=== PATIENT | female | born 1950 | race Caucasian/White ===

== ENCOUNTER 2021-04-24 06:40 | Emergency (ER) | payer MEDICARE, BC ==
--- NOTE | 2021-04-24 07:24 | EDM.PDOC ---
ED HPI GENERAL MEDICAL PROBLEM - General Chief Complaint: Respiratory Problem Stated Complaint: shortness of breath and cough Time Seen by Provider: 04/24/21 07:10 Source of Information: Reports: Patient History Limitations: Reports: No Limitations - History of Present Illness INITIAL COMMENTS - FREE TEXT/NARRATIVE: Pt states has lung cancer and hx clots. Cancer dx Apr 2020. States had chemo and radiation and will start chemo again on Sunday. SOB at home today, productive cough, came to ER. States had MRI and PET scan recently, but does not know result. States Full Code. Onset: Today, Gradual Onset Date: 04/24/21 Duration: Constant Location: Reports: Chest, Other (no chest pain) Improves with: Reports: None Worsens with: Reports: Movement Context: Reports: Other (lung cancer) Associated Symptoms: Reports: cough w sputum, Fever/Chills Treatments [employer]: Reports: Acetaminophen (tylenol at midnight) - Related Data Allergies Allergy/AdvReac Type Severity Reaction Status Date / Time No Known Allergies Allergy Verified 04/24/21 07:12 Past Medical History Oncologic (Cancer) History: Reports: Lung, Other (See Below) (adenocarcinoma) Social & Family History - Tobacco Use Tobacco Use Within Last Twelve Months: No Used Tobacco, but Quit: Yes Month/Year Tobacco Last Used: 35 years ago ED ROS GENERAL - Review of Systems Review Of Systems: See Below Constitutional: Reports: Fever HEENT: Reports: No Symptoms Respiratory: Reports: Shortness of Breath, Cough, Sputum Cardiovascular: Reports: No Symptoms Endocrine: Reports: No Symptoms GI/Abdominal: Reports: No Symptoms : Reports: No Symptoms Musculoskeletal: Reports: No Symptoms Skin: Reports: No Symptoms Neurological: Reports: No Symptoms Psychiatric: Reports: No Symptoms Hematologic/Lymphatic: Reports: No Symptoms Immunologic: Reports: No Symptoms ED EXAM, GENERAL - Physical Exam Exam: See Below Exam Limited By: No Limitations General Appearance: Alert, No Apparent Distress, Anxious Eye Exam: Bilateral Eye: EOMI Ears: Normal External Exam Nose: Normal Inspection, Normal Mucosa Throat/Mouth: Normal Inspection, Normal Oropharynx, Normal Voice, No Airway Compromise Neck: Supple, Non-Tender, Full Range of Motion, Other (goiter) Respiratory/Chest: Decreased Breath Sounds, Other (coarse throughout, diminished) Cardiovascular: Regular Rate, Rhythm, Tachycardia, Other (Occ PVCs on bedside monitor) GI/Abdominal: Soft, Non-Tender, No Distention Back Exam: Normal Inspection, Full Range of Motion Extremities: Normal Range of Motion, Non-Tender, No Pedal Edema, Normal Capillary Refill Neurological: Alert, Oriented, Normal Cognition Psychiatric: Normal Mood, Anxious Skin Exam: Warm, Dry, Intact, Normal Color, No Rash Lymphatic: No Adenopathy Course - Vital Signs Last Recorded V/S: Last Vital Signs Temp 100.6 F 04/24/21 08:00 Pulse 132 H 04/24/21 06:50 Resp 32 H 04/24/21 06:50 BP 147/88 H 04/24/21 06:50 Pulse Ox 87 L 04/24/21 06:50 - Orders/Labs/Meds Orders: Active Orders 24 hr Category Date Time Status RT Aerosol Therapy [RC] ASDIRECTED Care 04/24/21 08:19 Active CULTURE BLOOD [BC] Stat Lab 04/24/21 06:55 Received CULTURE BLOOD [BC] Stat Lab 04/24/21 07:20 Results Sodium Chloride 0.9% [Normal Saline] 1,000 ml Med 04/24/21 07:30 Active IV ASDIRECTED Blood Culture x2 Reflex Set [OM.PC] Stat Oth 04/24/21 07:16 Ordered Medication Orders Sodium Chloride (Normal Saline) 1,000 mls @ 250 mls/hr IV ASDIRECTED [facility] Labs: Laboratory Tests 04/24/21 04/24/21 04/24/21 Range/Units 06:55 06:55 06:55 WBC 11.6 H (4.0-10.0) x10^3/uL RBC 4.80 (4.00-5.50) x10^6/uL Hgb 14.5 (12.0-16.0) g/dL Hct 43.5 (33.0-47.0) % MCV 90.6 (78.0-93.0) fL MCH 30.2 (26.0-32.0) pg MCHC 33.3 (32.0-36.0) g/dL RDW Coeff of Mukul 12.4 (10.0-15.0) % Plt Count 225 (130-400) x10^3/uL Immature Gran % (Auto) 0.20 (0.00-0.43) % Neut % (Auto) 88.6 H (50.0-80.0) % Lymph % (Auto) 4.6 L (25.0-50.0) % [place] % (Auto) 6.2 (2.0-11.0) % Eos % (Auto) 0.3 (0.0-4.0) % Baso % (Auto) 0.1 L (0.2-1.2) % Neut # (Auto) 10.3 H (1.8-7.7) x10^3/uL Lymph # (Auto) 0.5 L (1.0-4.8) x10^3/uL [place] # (Auto) 0.7 (0.0-0.8) x10^3/uL Eos # (Auto) 0.0 (0.0-0.5) x10^3/uL Baso # (Auto) 0.0 (0.0-0.2) x10^3/uL Immature Gran # (Auto) 0.02 (0.00-0.07) x10^3/uL D-Dimer, Quantitative 0.79 H (<=0.58) mg/LFEU Sodium 138 (136-145) mmol/L Potassium 3.2 L (3.5-5.1) mmol/L Chloride 101 (98-107) mmol/L Carbon Dioxide 28 (21-32) mmol/L Anion Gap 12.2 (5-15) mmol/L BUN 11 (7-18) mg/dL Creatinine 1.0 (0.55-1.02) mg/dL Est Cr Clr Drug Dosing 44.56 mL/min Estimated GFR (MDRD) 55 Glucose 142 H (70-99) mg/dL Lactic Acid (0.4-2.0) mmol/L Calcium 9.7 (8.5-10.1) mg/dL Corrected Calcium 10.0 (8.5-10.1) mg/dL Total Bilirubin 1.1 H (0.2-1.0) mg/dL AST 17 (15-37) U/L ALT 21 (14-59) U/L Alkaline Phosphatase 82 (46-116) U/L Total Protein 7.1 (6.4-8.2) g/dL Albumin 3.6 (3.4-5.0) g/dL Globulin 3.5 Albumin/Globulin Ratio 1.03 Urine Color (YELLOW) Urine Appearance (CLEAR) Urine pH (5.0-8.0) Ur Specific [place] Urine Protein (NEGATIVE) mg/dL Urine Glucose (UA) (NEGATIVE) mg/dL Urine Ketones (NEGATIVE) mg/dL Urine Occult Blood (NEGATIVE) Urine Nitrite (NEGATIVE) Urine Bilirubin (NEGATIVE) Urine Urobilinogen (0.2) EU/dL Ur Leukocyte Esterase (NEGATIVE) Urine RBC (NOT SEEN) /HPF Urine WBC (NOT SEEN) /HPF Ur Squamous Epith Cells (NOT SEEN) /HPF Urine Bacteria (NOT SEEN) /HPF Urine Mucus (NOT SEEN) /LPF Influenza Type A RNA (NEGATIVE) RSV RNA (INAAT) (NEGATIVE) Influenza Type B RNA (NEGATIVE) SARS-CoV-2 RNA (FELECIA) (NEGATIVE) 04/24/21 04/24/21 04/24/21 Range/Units 06:55 07:00 08:19 WBC (4.0-10.0) x10^3/uL RBC (4.00-5.50) x10^6/uL Hgb (12.0-16.0) g/dL Hct (33.0-47.0) % MCV (78.0-93.0) fL MCH (26.0-32.0) pg MCHC (32.0-36.0) g/dL RDW Coeff of Mukul (10.0-15.0) % Plt Count (130-400) x10^3/uL Immature Gran % (Auto) (0.00-0.43) % Neut % (Auto) (50.0-80.0) % Lymph % (Auto) (25.0-50.0) % [place] % (Auto) (2.0-11.0) % Eos % (Auto) (0.0-4.0) % Baso % (Auto) (0.2-1.2) % Neut # (Auto) (1.8-7.7) x10^3/uL Lymph # (Auto) (1.0-4.8) x10^3/uL [place] # (Auto) (0.0-0.8) x10^3/uL Eos # (Auto) (0.0-0.5) x10^3/uL Baso # (Auto) (0.0-0.2) x10^3/uL Immature Gran # (Auto) (0.00-0.07) x10^3/uL D-Dimer, Quantitative (<=0.58) mg/LFEU Sodium (136-145) mmol/L Potassium (3.5-5.1) mmol/L Chloride (98-107) mmol/L Carbon Dioxide (21-32) mmol/L Anion Gap (5-15) mmol/L BUN (7-18) mg/dL Creatinine (0.55-1.02) mg/dL Est Cr Clr Drug Dosing mL/min Estimated GFR (MDRD) Glucose (70-99) mg/dL Lactic Acid 1.8 (0.4-2.0) mmol/L Calcium (8.5-10.1) mg/dL Corrected Calcium (8.5-10.1) mg/dL Total Bilirubin (0.2-1.0) mg/dL AST (15-37) U/L ALT (14-59) U/L Alkaline Phosphatase (46-116) U/L Total Protein (6.4-8.2) g/dL Albumin (3.4-5.0) g/dL Globulin Albumin/Globulin Ratio Urine Color Yellow (YELLOW) Urine Appearance Clear (CLEAR) Urine pH 5.5 (5.0-8.0) Ur Specific [place] >=1.030 Urine Protein 30 H (NEGATIVE) mg/dL Urine Glucose (UA) Negative (NEGATIVE) mg/dL Urine Ketones 80 H (NEGATIVE) mg/dL Urine Occult Blood Negative (NEGATIVE) Urine Nitrite Negative (NEGATIVE) Urine Bilirubin Small H (NEGATIVE) Urine Urobilinogen 0.2 (0.2) EU/dL Ur Leukocyte Esterase Trace H (NEGATIVE) Urine RBC 0-5 (NOT SEEN) /HPF Urine WBC 5-10 H (NOT SEEN) /HPF Ur Squamous Epith Cells Few H (NOT SEEN) /HPF Urine Bacteria Rare (NOT SEEN) /HPF Urine Mucus Moderate H (NOT SEEN) /LPF Influenza Type A RNA Negative (NEGATIVE) RSV RNA (INAAT) Negative (NEGATIVE) Influenza Type B RNA Negative (NEGATIVE) SARS-CoV-2 RNA (FELECIA) Negative (NEGATIVE) Meds: Medications Generic Name Dose Route Start Last Admin Trade Name Freq PRN Reason Stop Dose Admin Sodium Chloride 1,000 mls @ 250 mls/hr 04/24/21 07:30 Normal Saline IV ASDIRECTED KELSEY Discontinued Medications Generic Name Dose Route Start Last Admin Trade Name Nolan PRN Reason Stop Dose Admin Acetaminophen 1,000 mg 04/24/21 07:25 04/24/21 07:30 Acetaminophen 500 Mg Tab PO 04/24/21 07:26 1,000 mg ONETIME ONE Administration Albuterol/Ipratropium 3 ml 04/24/21 08:19 04/24/21 08:30 Albuterol/Ipratropium 3.0-0.5 Mg/3 Ml Neb Soln NEB 04/24/21 08:20 3 ml ONETIME ONE Administration Ceftriaxone Sodium 1 gm 04/24/21 08:00 Ceftriaxone 1 Gm Vial IVPUSH DAILY KELSEY Ceftriaxone Sodium 1 gm 04/24/21 07:56 04/24/21 08:19 Ceftriaxone 1 Gm Vial IVPUSH 04/24/21 07:57 Not Given STAT ONE Potassium Chloride 20 meq 04/24/21 08:19 04/24/21 08:30 Potassium Chloride 10 Meq Tab.Er PO 04/24/21 08:20 20 meq ONETIME ONE Administration - Re-Assessments/Exams Free Text/Narrative Re-Assessment/Exam: 04/24/21 09:13 Has had duo neb tx, ceftriaxone, potassium, saline IVFs. States feels better with oxygen usage. Free Text/Narrative Re-Assessment/Exam: 04/24/21 10:13 Dr. Sanchez at [facility] accepted pt. Departure - Departure Time of Disposition: 11:10 ([facility]) Disposition: DC/Tfer to Acute Hospital 02 Condition: Good Clinical Impression: Shortness of breath, Hypokalemia Fever Qualifiers: Fever type: unspecified Qualified Code(s): R50.9 - Fever, unspecified - Discharge Information Forms: ED Department Discharge, Interfacility Transfer EMTALA Additional Instructions: Transfer to [facility] Med Surg via ground EMS Sepsis Event Note (ED) - Focused Exam Vital Signs: Vital Signs Temp Temp Pulse Resp BP Pulse Ox 04/24/21 08:00 100.6 F 04/24/21 07:30 101.6 F H 04/24/21 06:50 101.4 F H 132 H 32 H 147/88 H 87 L - Problem List & Annotations (1) Shortness of breath SNOMED Code(s): 398892586 Code(s): R06.02 - SHORTNESS OF BREATH Status: Acute (2) Hypokalemia SNOMED Code(s): 27092973 Code(s): E87.6 - HYPOKALEMIA Status: Acute (3) Hypokalemia SNOMED Code(s): 08145654 Code(s): E87.6 - HYPOKALEMIA Status: Acute (4) Fever SNOMED Code(s): 266684412 Code(s): R50.9 - FEVER, UNSPECIFIED Status: Acute (5) Fever SNOMED Code(s): 231978640 Code(s): R50.9 - FEVER, UNSPECIFIED Status: Acute Qualifiers: Fever type: unspecified Qualified Code(s): R50.9 - Fever, unspecified - Problem List Review Problem List Initiated/Reviewed/Updated: Yes - My Orders Last 24 Hours: My Active Orders 04/24/21 06:55 CULTURE BLOOD [BC] Stat 04/24/21 07:16 Blood Culture x2 Reflex Set [OM.PC] Stat 04/24/21 07:20 CULTURE BLOOD [BC] Stat 04/24/21 07:30 Sodium Chloride 0.9% [Normal Saline] 1,000 ml IV ASDIRECTED 04/24/21 08:19 RT Aerosol Therapy [RC] ASDIRECTED - Assessment/Plan Last 24 Hours: My Active Orders 04/24/21 06:55 CULTURE BLOOD [BC] Stat 04/24/21 07:16 Blood Culture x2 Reflex Set [OM.PC] Stat 04/24/21 07:20 CULTURE BLOOD [BC] Stat 04/24/21 07:30 Sodium Chloride 0.9% [Normal Saline] 1,000 ml IV ASDIRECTED 04/24/21 08:19 RT Aerosol Therapy [RC] ASDIRECTED
[2021-04-24] MEDS ORDERED: Acetaminophen 500 MG Tab PO ONE (07:25)
[2021-04-24] MEDS ORDERED: Sodium Chloride 0.9% 1,000 ML IV SCH (07:30)
[2021-04-24] MEDS: cefTRIAXone 1 GM Vial IVPUSH ONE ×2 (07:55→08:19)
[2021-04-24] MEDS ORDERED: cefTRIAXone 1 GM Vial IVPUSH SCH (08:00)
[2021-04-24 08:17] LABS: ANION GAP 12.2 mmol/L (5-15)
[2021-04-24] MEDS ORDERED: Potassium Chloride 10 MEQ Tab.ER PO ONE (08:19)
[2021-04-24] MEDS ORDERED: Albuterol/Ipratropium 3.0-0.5 MG/3 ML Neb Soln NEB ONE (08:19)
[2021-04-24 08:37] LABS: CORONAVIRUS COVID-19 NAA NEGATIVE (NEGATIVE); RESPIRATORY SYNCYTIAL VIR NAA NEGATIVE (NEGATIVE)
--- NOTE | 2021-04-24 09:54 | CR ---
[id number] RAD/RAD Chest PA And Lateral EXAM: RAD Chest PA And Lateral CLINICAL DATA: LUNG CANCER SHORTNESS OF BREATH COMPARISON: CORRELATION IS MADE WITH THE CAT SCAN OF MAY 07, 2020 FINDINGS: Atelectasis at the left lung base is seen A loculated left-sided effusion is present. A left hilar mass is identified There is a faint underlying interstitial pattern. The left thyroid mass is identified with displacement of the airway to the right Follow-up contrast CT chest may be helpful IMPRESSION: PROGRESSION OF LUNG MALIGNANCY WITH SUBSEQUENT ATELECTASIS AND LOCULATED PLEURAL FLUID POSSIBLE LYMPHANGITIC DISEASE INVOLVING THE RIGHT LUNG Micha Reardon MD 04/24/21 0953 Thank you for allowing us to participate in the care of your patient.
== END 2021-04-24 10:30 | disposition short-term general hospital (02) ==
LOC: VM.ED 06:40
DX: R06.02 Shortness of breath (principal); E87.6 Hypokalemia; R50.9 Fever, unspecified; Z20.822 Contact with and (suspected) exposure to COVID-19
CPT/HCPCS: 0241U; 36415; 71046; 80053; 81001; 83605; 85025; 85379; 87040; 94640; 99285; A9270; J0696; J7620-GY